=== PATIENT | female | born 1955 | race Caucasian/White ===

== ENCOUNTER 2021-03-30 19:56 | Emergency (ER) | payer MEDICARE, MEDICAID ==
[2021-03-30] MEDS ORDERED: HYDROmorphone 0.5 MG/0.5 ML Syringe IM ONE (20:02)
--- NOTE | 2021-03-30 21:21 | EDM.PDOC ---
ED HPI GENERAL MEDICAL PROBLEM - General Chief Complaint: General Stated Complaint: MEDICAL [facility] Time Seen by Provider: 03/30/21 20:01 Source of Information: Reports: Patient, EMS History Limitations: Reports: No Limitations - History of Present Illness INITIAL COMMENTS - FREE TEXT/NARRATIVE: Shalonda is a 65-year-old female presenting to the ED via [facility] from [facility] for evaluation of left anterior chest pain secondary to falling earlier today. Patient was at the library at the [facility] and tripped falling either on her walker or chair and landing on the floor. She was able to get back up but has had increasing left anterior chest pain under her left breast and wanted to come in to get it checked out. She denies any other injuries. 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 Left Thoracic Pain Score (Numeric/FACES): 10 - Related Data Allergies Allergy/AdvReac Type Severity Reaction Status Date / Time No Known Allergies Allergy Verified 03/30/21 20:08 Home Meds: Home Meds Calcium Carbonate/Vitamin D3 [Calcium 600 mg-Vit D3 5 Mcg Tb] 1 tab PO DAILY 03/30/21 [History] Citalopram Hydrobromide [Celexa] 40 mg PO DAILY 03/30/21 [History] Cyclobenzaprine [Flexeril] 10 mg PO TID 03/30/21 [History] Hydrocodone/Acetaminophen [Vicodin Hp 10-300 mg Tablet] 1 each PO Q8H PRN 03/30/21 [History] Levothyroxine [Synthroid] 88 mcg PO ACBREAKFAST 03/30/21 [History] Mirtazapine [Remeron] 15 mg PO DAILY 03/30/21 [History] Montelukast [Singulair] 10 mg PO DAILY 03/30/21 [History] Pantoprazole Sodium [Protonix] 40 mg PO DAILY 03/30/21 [History] ursodioL [Ursodiol] 300 mg PO DAILY 03/30/21 [History] Past Medical History HEENT History: Reports: Cataract, Impaired Vision Gastrointestinal History: Reports: GERD 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: , 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 Musculoskeletal History: Reports: Back Pain, Chronic, Fracture Neurological History: Reports: Headaches, Chronic Psychiatric History: Reports: Anxiety, Depression Endocrine/Metabolic History: Reports: Hypothyroidism, Obesity/BMI 30+ Oncologic (Cancer) History: Reports: Renal - Infectious Disease History Infectious Disease History: Reports: Chicken Pox - Past Surgical History HEENT Surgical History: Reports: Cataract Surgery, Naso-Sinus Surgery GI Surgical History: Reports: Cholecystectomy, Other (See Below) Other GI Surgeries/Procedures: kidney removed Female Surgical History: Reports: Tubal Ligation Musculoskeletal Surgical History: Reports: Carpal Tunnel, Hip Replacement, Shoulder Surgery Other Musculoskeletal Surgeries/Procedures:: rib removed under right arm Social & Family History - Tobacco Use Tobacco Use Status *Q: Never Tobacco User - Caffeine Use Caffeine Use: Reports: Coffee - Recreational Drug Use Recreational Drug Use: No ED ROS GENERAL - Review of Systems Review Of Systems: See Below Constitutional: Reports: No Symptoms HEENT: Reports: No Symptoms Respiratory: Reports: Shortness of Breath (Due to anterior left chest pain) Cardiovascular: Reports: Chest Pain (Left anterior chest pain) Endocrine: Reports: No Symptoms GI/Abdominal: Reports: No Symptoms : Reports: No Symptoms Musculoskeletal: Reports: No Symptoms Skin: Reports: No Symptoms Neurological: Reports: No Symptoms Psychiatric: Reports: No Symptoms Hematologic/Lymphatic: Reports: No Symptoms ED EXAM, GENERAL - Physical Exam Exam: See Below Exam Limited By: No Limitations General Appearance: Alert, Anxious, Mild Distress Eye Exam: Bilateral Eye: EOMI, PERRL Nose: Normal Inspection Throat/Mouth: Normal Inspection, Normal Oropharynx Head: Atraumatic, Normocephalic Neck: Normal Inspection, Supple, Non-Tender. No: Tender Midline Respiratory/Chest: No Respiratory Distress, Lungs Clear, Normal Breath Sounds, Other (Tenderness with palpation over the left anterior chest wall) Cardiovascular: Normal Peripheral Pulses, Regular Rate, Rhythm, No Murmur Peripheral Pulses: 2+: Radial (L), Radial (R) GI/Abdominal: Normal Bowel Sounds, Soft, Non-Tender Extremities: Normal Inspection, Normal Range of Motion Neurological: Alert, Oriented, Normal Cognition, No Motor/Sensory Deficits Skin Exam: Warm, Dry Course - Vital Signs Last Recorded V/S: Last Vital Signs Temp 36.7 C 03/30/21 20:05 Pulse 66 03/30/21 20:05 Resp 16 03/30/21 20:05 BP 133/105 H 03/30/21 20:05 Pulse Ox 94 L 03/30/21 20:05 - Orders/Labs/Meds Meds: Medications Discontinued Medications Generic Name Dose Route Start Last Admin Trade Name Freq PRN Reason Stop Dose Admin Hydromorphone HCl 0.5 mg 03/30/21 20:02 03/30/21 20:17 Hydromorphone 0.5 Mg/0.5 Ml Syringe IM 03/30/21 20:03 0.5 mg ONETIME ONE Administration - Radiology Interpretation Free Text/Narrative:: I reviewed the images of the CT of the chest without contrast demonstrating a rib fracture on the left #4 and #6 ribs. Will await the formal report from [facility] which follows: FINDINGS: Lungs and pleura: No pneumothorax. No consolidation. Some scars are present in the lower lobes. Tiny benign calcified nodule posterior right upper lobe. Tiny calcified nodules adjacent to the minor fissure. Medial right lower lobe scarring. Heart and mediastinum: Calcified plaques in the coronary arteries. No pericardial fluid. No mediastinal hematoma , mass, or adenopathy. Aorta is normal in caliber with calcified plaque in the arch. Upper abdomen: Gallbladder is absent. Some incidental pneumobilia. Right kidney not identified question surgically absent. Skeletal: Minimally displaced fracture left anterior 6th rib. Minimal cortical or irregularity suggesting subtle fracture left anterior 4th rib. No obvious intercostal hematoma. Disc degeneration thoracic spine. IMPRESSION: 1. Minimally displaced left-sided anterior 6th and 4th rib fractures. 2. No pneumothorax hemo thorax or other additional acute radiographic abnormalities. 3. Nonspecific parenchymal scarring. 4. Coronary artery disease with calcified plaques. 5. Status post gallbladder surgery and possible previous right nephrectomy. Please note that all CT scans at this facility use dose modulation, iterative reconstruction, and/or weight-based dosing when appropriate to reduce radiation dose to as low as reasonably achievable. Dictated by Dion Church MD @ 03/30/2021 9:21:20 PM Departure - Departure Time of Disposition: 21:29 Disposition: Home, Self-Care 01 Clinical Impression: Multiple fractures of ribs Qualifiers: Encounter type: initial encounter Fracture type: closed Laterality: left Qualified Code(s): S22.42XA - Multiple fractures of ribs, left side, initial encounter for closed fracture - Discharge Information Instructions: Rib Fracture, [id number] Referrals: PCP,Unknown [Primary Care Provider] - Forms: ED Department Discharge Care Plan Goals: Your work-up today has shown that you have fractured the left fourth and sixth ribs on the anterior chest beneath your breast. The best way to treat this is to get Salonpas lidocaine patches which are available at [facility] or [facility] and apply one to the area replacing it daily for the next 7 days. At this time, I think that you are able to return to [facility]. Sepsis Event Note (ED) - Evaluation Sepsis Screening Result: No Definite Risk - Focused Exam Vital Signs: Vital Signs Temp Pulse Resp BP Pulse Ox 03/30/21 20:05 36.7 C 66 16 133/105 H 94 L - Problem List & Annotations (1) Multiple fractures of ribs SNOMED Code(s): 8082615 Code(s): S22.49XA - MULTIPLE FRACTURES OF RIBS, UNSP SIDE, INIT FOR CLOS FX Status: Acute Priority: Medium Current Visit: Yes Qualifiers: Encounter type: initial encounter Fracture type: closed Laterality: left Qualified Code(s): S22.42XA - Multiple fractures of ribs, left side, initial encounter for closed fracture - Problem List Review Problem List Initiated/Reviewed/Updated: Yes
--- NOTE | 2021-03-30 21:22 | CRLCT ---
For Patients: As a result of the Century Cures Act, medical imaging exams and procedure reports are released immediately into your electronic medical record. You may view this report before your referring provider. If you have questions, please contact your health care provider. INDICATION: Trauma left anterior chest pain. TECHNIQUE: CT chest. No intravenous contrast. FINDINGS: Lungs and pleura: No pneumothorax. No consolidation. Some scars are present in the lower lobes. Tiny benign calcified nodule posterior right upper lobe. Tiny calcified nodules adjacent to the minor fissure. Medial right lower lobe scarring. Heart and mediastinum: Calcified plaques in the coronary arteries. No pericardial fluid. No mediastinal hematoma , mass, or adenopathy. Aorta is normal in caliber with calcified plaque in the arch. Upper abdomen: Gallbladder is absent. Some incidental pneumobilia. Right kidney not identified question surgically absent. Skeletal: Minimally displaced fracture left anterior 6th rib. Minimal cortical or irregularity suggesting subtle fracture left anterior 4th rib. No obvious intercostal hematoma. Disc degeneration thoracic spine. IMPRESSION: 1. Minimally displaced left-sided anterior 6th and 4th rib fractures. 2. No pneumothorax hemo thorax or other additional acute radiographic abnormalities. 3. Nonspecific parenchymal scarring. 4. Coronary artery disease with calcified plaques. 5. Status post gallbladder surgery and possible previous right nephrectomy. Please note that all CT scans at this facility use dose modulation, iterative reconstruction, and/or weight-based dosing when appropriate to reduce radiation dose to as low as reasonably achievable. Dictated by Dion Church MD @ 03/30/2021 9:21:20 PM (Electronically Signed)
[2021-03-30] MEDS ORDERED: Lidocaine 5% 700 MG Patch TOP ONE (21:29)
== END 2021-03-30 21:58 | disposition home or self-care (01) ==
LOC: JP.ED 19:56
DX: S22.42XA Multiple fractures of ribs, left side, initial encounter for closed fracture (principal); K21.9 Gastro-esophageal reflux disease without esophagitis; E03.9 Hypothyroidism, unspecified; E66.9 Obesity, unspecified; Z68.34 Body mass index [BMI] 34.0-34.9, adult; Z79.899 Other long term (current) drug therapy; W01.0XXA Fall on same level from slipping, tripping and stumbling without subsequent striking against object, initial encounter
CPT/HCPCS: 71250; 96372; 99284; A9270; J1170

== ENCOUNTER 2024-07-08 12:14 | Emergency (ER) | payer MEDICAID, MEDICARE ==
[2024-07-08 12:34] LABS: BASOPHILS ABSOLUTE AUTO 0.04 K/uL (0.00-0.10); BASOPHILS PERCENT AUTO 0.3 % (0.1-1.3); EOSINOPHILS PERCENT AUTO 0.2 % (0.0-5.4); HEMATOCRIT 48.6 % (34.3-46.0); HEMOGLOBIN 16.6 g/dL (11.2-15.5); IMMATURE GRAN ABSOLUTE AUTO 0.09 K/uL (0.00-0.23); IMMATURE GRAN PERCENT AUTO 0.7 % (0.0-0.7); LYMPHOCYTES ABSOLUTE AUTO 2.02 K/uL (0.8-3.3); LYMPHOCYTES PERCENT AUTO 16.7 % (11.4-47.7); MEAN CORPUSCULAR HEMOGLOBIN 31.7 pg (31.6-35.5); MEAN CORPUSCULAR HGB CONC 34.2 g/dL (31.6-35.5); MEAN CORPUSCULAR VOLUME 92.7 fL (81.4-99.0); MONOCYTES ABSOLUTE AUTO 1.29 K/uL (0.20-0.90); MONOCYTES PERCENT AUTO 10.6 % (3.3-12.6); NEUTROPHILS ABSOLUTE AUTO 8.67 K/uL (1.0-7.6); NEUTROPHILS PERCENT AUTO 71.5 % (40.0-78.1); PLATELET COUNT,PLT 218 K/uL (130-375); RED BLOOD CELL COUNT 5.24 M/uL (3.77-5.24); WHITE BLOOD CELL COUNT,WBC 12.1 K/uL (3.2-11.0)
[2024-07-08 12:35] LABS: EOSINOPHILS ABSOLUTE AUTO 0.02 K/uL (0.00-0.40)
[2024-07-08 13:02] LABS: A/G RATIO 0.9 (1.2-2.2); ALANINE AMINOTRANSFERASE,ALT 13 U/L (12-78); ALBUMIN 3.6 g/dL (3.4-5.0); ALKALINE PHOSPHATASE 53 U/L (46-116); ANION GAP 15.8 mmol/L (5.0-14.0); ASPARTATE AMNIOTRANSFERASE,AST 23 U/L (15-37); BLOOD UREA NITROGEN,BUN 24 mg/dL (7-18); CALCIUM 9.6 mg/dL (8.5-10.1); CARBON DIOXIDE,CO2 28 mmol/L (21-32); CHLORIDE,CL 92 mmol/L (100-108); CREATININE 1.2 mg/dL (0.6-1.0); EST CRCL DRUG DOSING (CG) 34.33 mL/min; ESTIMATED GFR 50 mL/min (>60); GLUCOSE RANDOM 146 mg/dL (74-106); POTASSIUM,K 3.8 mmol/L (3.6-5.2); PRO B-TYPE NATRIUR PEPT,BNPPRO 5477 pg/mL (5-125); PROTEIN TOTAL,TP 7.7 g/dL (6.4-8.2); SODIUM,NA 132 mmol/L (140-148)
[2024-07-08 13:10] LABS: C-REACTIVE PROTEIN < 0.50 mg/dL (<0.50); TROPONIN I HIGH SENSITIVITY 268.8 pg/mL (<=60.3)
[2024-07-08] MEDS: Sodium Chloride 0.9% 1,000 ML IV ONE (13:46)
[2024-07-08] MEDS: Aspirin 81 MG Tab.Chew PO ONE (13:46)
[2024-07-08] MEDS: Acetaminophen 325 MG Tab PO ONE (15:06)
[2024-07-08] MEDS: Furosemide 40 MG/4 ML VIAL IVPUSH ONE (15:07)
[2024-07-08 15:10] LABS: INR 1.2; PROTHROMBIN TIME 11.8 sec (9.2-10.6)
[2024-07-08] MEDS: Ondansetron 4 MG/2 ML SDV IVPUSH ONE (15:21)
[2024-07-08] MEDS: Heparin Sodium/D5W 25,000 UNITS/500 ML BAG IV SCH (16:04)
[2024-07-08] MEDS: Heparin Sodium 5,000 Units/ML Vial IVPUSH ONE (16:04)
== END 2024-07-08 19:33 ==
LOC: JP.ED 12:14
DX: I21.4 Non-ST elevation (NSTEMI) myocardial infarction (principal); I95.9 Hypotension, unspecified; I50.9 Heart failure, unspecified; E03.9 Hypothyroidism, unspecified; K21.9 Gastro-esophageal reflux disease without esophagitis; Z79.899 Other long term (current) drug therapy; Z90.49 Acquired absence of other specified parts of digestive tract
CPT/HCPCS: 36415; 71045; 71045-26; 71250; 71250-26; 74176; 74176-26; 80053; 80307; 83605; 83690; 83880; 84443; 84484; 85025; 85610; 85730; 86140; 87428-QW; 93005; 93010; 96361; 96365; 96366; 96375; 99285; 99285-25; A9270-GY; J1644; J1940; J2405; J7030